=== PATIENT | male | born 1950 | race Two or more races ===

== ENCOUNTER 2019-04-19 23:45 | Inpatient (IN) | payer MEDICARE ==
[~2019-04-19] VITALS: Ht 162.6 cm; Wt 50.4 kg
--- NOTE | 2019-04-19 23:50 | NUR ---
NURSE NOTES: Receive a report on the phone from Manuel Butcher RN @ [facility] for pt's direct admit.
--- NOTE | 2019-04-20 00:30 | NUR ---
NURSE NOTES: Receive a call from Dr. Mayfield and receive admission orders. Read back and confirm. Continue to bladder irrigation. Hold anticoagulants if pt takes any of them. Will carry out admission orders when pt admits.
[2019-04-20 01:45] VITALS: BP 160/86
--- NOTE | 2019-04-20 01:45 | NUR ---
NURSE NOTES: Pt newly admitted from [facility] ER via [facility] for gross hematuria. Awake and alert, orientation x4. No acute distress noted. Denies pain. 3-way brown catheter inserted state for continuous bladder irrigation. Noted hematuria. Body assessment is done. Skin intact. IV H/L on rt. AC without infiltration. Done checking belongings. Given room orientation with fall precautions. Call light within reach. Will continue to monitor. Dr. Mayfield is aware of pt's admission.
--- NOTE | 2019-04-20 02:00 | NUR ---
NURSE NOTES: Collect urine for Urine analysis and C/S.
[2019-04-20] MEDS ORDERED: HYDROcodone/Acetamin 5/325 tab ORAL PRN (03:00)
[2019-04-20] MEDS ORDERED: cefTRIAXone 1 GM in D5W 55 ML IVPB SCH ×2 (03:30→09:00)
[2019-04-20 03:34] LABS: APPEARANCE,URINE SLIGHTLY CLOUDY; BILIRUBIN, URINE NEGATIVE (NEGATIVE); COLOR,URINE RED; GLUCOSE, URINE (UA) NEGATIVE (NEGATIVE); KETONES,URINE NEGATIVE (NEGATIVE); LEUKOCYTE ESTERASE ,URINE 3+ (NEGATIVE); NITRITE,URINE NEGATIVE (NEGATIVE); PH,URINE 8 (4.5-8.0); PROTEIN,URINE 2+ (NEGATIVE); UROBILINOGEN,URINE NORMAL MG/DL (0.0-1.0)
[2019-04-20 04:00] VITALS: BP 153/68
--- NOTE | 2019-04-20 06:00 | NUR ---
NURSE NOTES: Provide information for possible blood transfusion and pamphlet. Receive a consent form. On CBI and noted bloody urine drained via brown catheter. No dizziness noted. Will continue to monitor.
[2019-04-20 06:34] LABS: BASOPHILS % (AUTO) 0.9 % (0.0-2.0); EOSINOPHILS % (AUTO) 1.4 % (0.0-3.0); HEMATOCRIT 24.8 % (42.0-52.0); HEMOGLOBIN 8.7 G/DL (14.2-18.0); LYMPHOCYTES % (AUTO) 14.7 % (20.0-45.0); MEAN CORPUSCULAR VOLUME 83 FL (80-99); MONOCYTES % (AUTO) 12.2 % (1.0-10.0); NEUTROPHILS % (AUTO) 70.8 % (45.0-75.0); PLATELET COUNT 354 K/UL (150-450); RED BLOOD COUNT 2.97 M/UL (4.70-6.10); RED CELL DISTRIBUTION WIDTH 10.8 % (11.6-14.8)
[2019-04-20 07:13] LABS: ALANINE AMINOTRANSFERASE 18 U/L (12-78); ALBUMIN 2.6 G/DL (3.4-5.0); ALBUMIN/GLOBULIN RATIO 0.8 (1.0-2.7); ALKALINE PHOSPHATASE 60 U/L (46-116); ANION GAP 9 mmol/L (5-15); ASPARTATE AMINO TRANSFERASE 13 U/L (15-37); BILIRUBIN,TOTAL 0.5 MG/DL (0.2-1.0); BLOOD UREA NITROGEN 4 mg/dL (7-18); CALCIUM 7.8 MG/DL (8.5-10.1); CARBON DIOXIDE 26 MMOL/L (21-32); CHLORIDE 109 MMOL/L (98-107); CREATININE 0.8 MG/DL (0.55-1.30); PHOSPHORUS 2.5 MG/DL (2.5-4.9); POTASSIUM 3.2 MMOL/L (3.5-5.1); SODIUM 144 MMOL/L (136-145)
--- NOTE | 2019-04-20 07:45 | NUR ---
HAND-OFF: Report given to VINOD Randolph. Round is done. Still bloody output noted via brown catheter.
[2019-04-20 08:00] VITALS: BP 148/80
--- NOTE | 2019-04-20 08:16 | NUR ---
NURSE NOTES: Received patient in bed awake. No SOB or acute distress. IV line intact and patent. 3 way brown catheter intact, on continuous bladder irrigation using approximately 2 liters remaining, bloody output noted. HOB elevated. Bed locked in lowest position. Call light within reach. Will continue plan of care.
[2019-04-20 12:00] VITALS: BP 145/76
--- NOTE | 2019-04-20 12:29 | Consultation ---
History of Present Illness General Date patient seen: Apr 20, 2019 Present Illness HPI 69 year old without any PMHx history, developed urinary retention one week ago and got a Perez catheter place. His catheter stop draining yesterday. He had blood clots in the Perez. He presented to [place] a few times and his catheter got flushed. He has been transferred to [place] for further management. Allergies: Coded Allergies: No Known Allergies (Unverified , 04/20/19) Patient History Healthcare decision maker Resuscitation status Full Code Advanced Directive on File Past Medical/Surgical History Past Medical/Surgical History: (1) Urinary retention Review of Systems Eye: Reports: no symptoms ENT: Reports: no symptoms Physical Exam General Appearance: WD/WN, no apparent distress Lines, tubes and drains: peripheral, central line HEENT: normocephalic, atraumatic Neck: non-tender, supple Respiratory/Chest: chest wall non-tender, lungs clear Breasts: no masses Cardiovascular/Chest: normal rate Abdomen: normal bowel sounds Genitourinary/Rectal: normal genital exam Extremities: normal range of motion Last 24 Hour Vital Signs Date Time Temp Pulse Resp B/P (MAP) Pulse Ox O2 Delivery O2 Flow Rate FiO2 04/20/19 09:00 Room Air 04/20/19 08:00 97.0 92 16 148/80 (102) 97 04/20/19 04:00 98.3 86 16 153/68 (96) 97 04/20/19 02:46 Room Air 04/20/19 02:32 Room Air 04/20/19 01:45 98.3 98 16 160/86 (110) 99 Intake and Output 04/19/19 04/20/19 19:00 07:00 Intake Total 225 ml Balance 225 ml Intake IV Total 225 ml Laboratory Tests Test 04/20/19 02:00 04/20/19 05:05 Urine Color Red Urine Appearance Slightly cloudy Urine pH 8 (4.5-8.0) Urine Specific [place] 1.010 (1.005-1.035) Urine Protein 2+ (NEGATIVE) H Urine Glucose (UA) Negative (NEGATIVE) Urine Ketones Negative (NEGATIVE) Urine Blood 5+ (NEGATIVE) H Urine Nitrite Negative (NEGATIVE) Urine Bilirubin Negative (NEGATIVE) Urine Urobilinogen Normal MG/DL (0.0-1.0) Urine Leukocyte Esterase 3+ (NEGATIVE) H Urine RBC Tntc /HPF (0 - 0) H Urine WBC 5-10 /HPF (0 - 0) H Urine Squamous Epithelial Cells None /LPF (NONE/OCC) Urine Bacteria Few /HPF (NONE) White Blood Count 11.0 K/UL (4.8-10.8) H Red Blood Count 2.97 M/UL (4.70-6.10) L Hemoglobin 8.7 G/DL (14.2-18.0) L Hematocrit 24.8 % (42.0-52.0) L Mean Corpuscular Volume 83 FL (80-99) Mean Corpuscular Hemoglobin 29.3 PG (27.0-31.0) Mean Corpuscular Hemoglobin Concent 35.2 G/DL (32.0-36.0) Red Cell Distribution Width 10.8 % (11.6-14.8) L Platelet Count 354 K/UL (150-450) Mean Platelet Volume 6.7 FL (6.5-10.1) Neutrophils (%) (Auto) 70.8 % (45.0-75.0) Lymphocytes (%) (Auto) 14.7 % (20.0-45.0) L Monocytes (%) (Auto) 12.2 % (1.0-10.0) H Eosinophils (%) (Auto) 1.4 % (0.0-3.0) Basophils (%) (Auto) 0.9 % (0.0-2.0) Prothrombin Time 10.7 SEC (9.30-11.50) Prothromb Time International Ratio 1.0 (0.9-1.1) Activated Partial Thromboplast Time 35 SEC (23-33) H Sodium Level 144 MMOL/L (136-145) Potassium Level 3.2 MMOL/L (3.5-5.1) L Chloride Level 109 MMOL/L (98-107) H Carbon Dioxide Level 26 MMOL/L (21-32) Anion Gap 9 mmol/L (5-15) Blood Urea Nitrogen 4 mg/dL (7-18) L Creatinine 0.8 MG/DL (0.55-1.30) Estimat Glomerular Filtration Rate > 60 mL/min (>60) Glucose Level 98 MG/DL (74-106) Calcium Level 7.8 MG/DL (8.5-10.1) L Phosphorus Level 2.5 MG/DL (2.5-4.9) Magnesium Level 1.8 MG/DL (1.8-2.4) Total Bilirubin 0.5 MG/DL (0.2-1.0) Aspartate Amino Transf (AST/SGOT) 13 U/L (15-37) L Alanine Aminotransferase (ALT/SGPT) 18 U/L (12-78) Alkaline Phosphatase 60 U/L (46-116) Total Protein 5.9 G/DL (6.4-8.2) L Albumin 2.6 G/DL (3.4-5.0) L Globulin 3.3 g/dL Albumin/Globulin Ratio 0.8 (1.0-2.7) L Height (Feet): 5 Height (Inches): 4.00 Weight (Pounds): 111 Medications Current Medications Medications (Trade) Dose Ordered Sig/Adrián Route PRN Reason Start Time Stop Time Status Last Admin Dose Admin Acetaminophen (Tylenol) 650 mg Q6H PRN ORAL Mild Pain/Temp > 100.5 04/20/19 03:00 05/20/19 02:59 Acetaminophen/ Hydrocodone Bitart ([place] 5/325) 1 tab Q6H PRN ORAL Moderate Pain (Pain Scale 4-6) 04/20/19 03:00 04/27/19 02:59 Acetaminophen/ Hydrocodone Bitart ([place] 5/325) 1 tab Q6H PRN ORAL Severe Pain (Pain Scale 7-10) 04/20/19 03:00 04/27/19 02:59 Ceftriaxone Sodium 1 gm/ Dextrose 55 ml @ 110 mls/hr Q12H IVPB 04/20/19 09:00 04/27/19 03:29 04/20/19 09:05 Ondansetron HCl (Zofran) 4 mg Q4H PRN IVP Nausea & Vomiting 04/20/19 03:00 05/20/19 02:59 Sodium Chloride 1,000 ml @ 75 mls/hr [id number] IV 04/20/19 03:00 05/20/19 02:59 04/20/19 03:38 Assessment/Plan Problem List: (1) Hematuria ICD Codes: R31.9 - Hematuria, unspecified SNOMED: 63849709 (2) Severe anemia ICD Codes: D64.9 - Anemia, unspecified SNOMED: 180745408 (3) UTI (urinary tract infection) ICD Codes: N39.0 - Urinary tract infection, site not specified SNOMED: 55477276 (4) Urinary retention ICD Codes: R33.9 - Retention of urine, unspecified SNOMED: 796262586 Assessment/Plan: frequent Perez drainage iv fluids symptomatic treatment Urology called, Dr. Horner check urine cultures Geovany Welch MD Apr 20, 2019 12:29
--- NOTE | 2019-04-20 13:18 | History & Physical ---
History and Physical History & Physicial Dictated for Int Med-Dr Mayfield no. [id number]. Jarvis Naidu MD Apr 20, 2019 13:18
[2019-04-20] MEDS: NS w/KCl 20mEq 1000ml 1,000 ML IV SCH (13:38)
--- NOTE | 2019-04-20 14:24 | NUR ---
CASE MANAGEMENT: INITIAL REVIEW 69YR OLD MALE BIBA FROM [place] CC: URINARY RETENTION SI: HEMATURIA . SEVERE ANEMIA . UTI . URINARY RETENTION WITH CATHETER WBC 11.0 H/H 8.7/24.8 K+3.2 CL-109 BUN 4 CA+ 7.8 IS:IVF NS @75ML/HR IV KCL @75ML/HR IV ROCEPHIN BID \: 3E MED SURG UNIT PLAN: CONSULT REGARDING HEMATURIA WITH DR. MILLER IVF FREQUENT ANTONIO DRAINAGE UROLOGY CONSULT DR. TSANG
[2019-04-20 16:00] VITALS: BP 142/74
--- NOTE | 2019-04-20 16:00 | NUR ---
NURSE NOTES: Slightly elevated temp at 100F, cooling measures done. Prn medication given.
--- NOTE | 2019-04-20 17:30 | History and Physical Report ---
DATE OF ADMISSION: 04/20/2019 CHIEF COMPLAINT: The patient is a 69-year-old male, who presents with a chief complaint of blood in his urine. HISTORY OF PRESENT ILLNESS: Began approximately 6 years ago when the patient was diagnosed with benign prostatic hypertrophy. The patient was given a trial of Perez catheter at that time. Benign prostatic hypertrophy resolved. The patient states two weeks ago, he began to experience suprapubic pain and urinary retention. The patient was seen at urgent care two weeks ago. The patient was prescribed terazosin 5 mg p.o. daily. . The patient presented to [facility] on 04/10/2019. The patient had a Perez catheter placed. The catheter was also flushed that same day at the emergency room. The patient returned to [facility] on Thursday April 11, 2019. The patient states the catheter was clogged. The catheter was replaced. The patient states he began to experience blood in his urinary catheter yesterday, 04/19/2019. The patient again went to [facility]. The Perez catheter was found to be obstructed. The patient is transferred to [facility] for insurance purposes. The patient is admitted with gross hematuria to rule out bladder cancer. REVIEW OF SYSTEMS: CONSTITUTIONAL: The patient denies weight loss or gain. The patient denies fevers or chills. HEENT: The patient denies ear or throat pain. The patient denies headache. CARDIOVASCULAR: The patient denies palpitations or chest pain. CHEST: The patient denies wheeze or shortness of breath. ABDOMINAL: The patient denies nausea, vomiting, diarrhea, or constipation. The patient complains of suprapubic catheter pain. NEUROMUSCULAR: The patient denies seizures or generalized weakness. GENITOURINARY: The patient complains of gross hematuria as above. The patient denies dysuria. PAST MEDICAL HISTORY: Significant for benign prostatic hypertrophy, diagnosed 6 years previously. PAST SURGICAL HISTORY: The patient denies. CURRENT MEDIATIONS: Terazosin 5 mg p.o. daily for the past two weeks. ALLERGIES: No known drug allergies. SOCIAL HISTORY: The patient is single and lives with his adult daughter. The patient denies tobacco or alcohol use. PHYSICAL EXAMINATION: VITAL SIGNS: Temperature 100.4 degrees Fahrenheit, pulse 92, blood pressure 146/69, respiration rate 18. GENERAL: The patient is well-developed and well-nourished male, in no apparent distress. HEENT: Eyes, pupils are equal and responsive to light and accommodation. Extraocular movements are intact. NECK: Supple without lymphadenopathy. CHEST: Lungs are clear to auscultation bilaterally without wheezes or rales. CARDIOVASCULAR: Regular rhythm and rate. S1 and S2 normal without murmurs, rubs, or gallops. ABDOMEN: Soft, tender to palpation in the periumbilical region without rebound or guarding. EXTREMITIES: Negative for clubbing, cyanosis, or edema. RECTAL/GENITAL: Not performed. NEUROLOGIC: Cranial nerves II through XII are grossly intact without focal deficits. Motor strength is 5/5 bilaterally. Deep tendon reflexes are 2+ plantar. LABORATORY STUDIES: WBC 13.6, hemoglobin 9.3, hematocrit 27.9, and platelets 387,000. Sodium 137, potassium 3.5, chloride 102, CO2 28, BUN 10, creatinine 1.03. Urinalysis showed 3+ hemoglobin with 6 to 10 wbc's and greater than 50 rbc's. ASSESSMENT: This is a 69-year-old male. 1. Gross hematuria. 2. Urinary tract infection. 3. Suprapubic pain. 4. Fever. TREATMENT: 1. Urinary tract infection. Urine culture is pending from [facility]. The patient has been started empirically on intravenous ceftriaxone. A Urology consultation has been obtained with Dr. Pee Green. The patient may require cystoscopy to rule out bladder cancer. 2. Suprapubic pain. 3. Benign prostatic hypertrophy. Continue terazosin as above. Jarvis Naidu M.D. DR: GENNA JOB#: [id number] CC:
--- NOTE | 2019-04-20 18:57 | NUR ---
NURSE NOTES: Dr Green seen patient, hand irrigated brown catheter, with clots taken out. Procedure tolerated well by patient.
--- NOTE | 2019-04-20 19:20 | NUR ---
NURSE NOTES: Received report from VINOD Randolph. Pt is awake, lying semi-fregoso's; comfortably resting. No signs of acute distress noted. Pt denies any pain at this time. AOx4; able to make needs known. Checked IV site, line, and rate; patent and running. No erythema, bleeding, or infiltration. CBI checked; patent and running. Bed at lowest position. Brakes on. Siderails up x2. Call light within reach. Will continue to monitor.
--- NOTE | 2019-04-20 19:57 | NUR ---
HAND-OFF: Report given to cuca.
[2019-04-20 20:00] VITALS: BP 124/71
--- NOTE | 2019-04-20 20:00 | Consultation ---
DATE OF CONSULTATION: 04/20/2019 CONSULTING PHYSICIAN: Pee Green M.D. REFERRING PHYSICIAN: Jarvis Naidu M.D. REASON FOR EVALUATION: Gross hematuria. HISTORY OF PRESENT ILLNESS: This is a 69-year-old male. He has a history of BPH. He has a history of urinary retention. He had a Perez catheter placed apparently a week or two ago at an urgent care facility. He had hematuria and he was seen at a [place] facility. The Perez catheter was apparently occluded and the catheter was replaced. He was started on continuous bladder irrigation. The patient has been transferred to [facility]. Followup Urology evaluation had been requested. PAST MEDICAL HISTORY: Significant for above. PAST SURGICAL HISTORY: Unknown. CURRENT MEDICATIONS: Here in the hospital, the patient is on Rocephin. He is on Restoril, [place], and Zofran. ALLERGIES: No known drug allergies. SOCIAL HISTORY: The patient is currently a nonsmoker. FAMILY HISTORY: Noncontributory. REVIEW OF SYSTEMS: No significant flank pain. PHYSICAL EXAMINATION: GENERAL: A well-developed and well-nourished male, in no acute distress. VITAL SIGNS: Temperature is 100, blood pressure is 142/74, pulse 95, respirations 17. HEENT: Normocephalic. NECK: Supple. ABDOMEN: Soft. GENITOURINARY: Reveals 20-Finnish 3-way Perez catheter in place. Urine is grossly dark bloody. LABORATORY DATA: PT 10.7, INR 1.0, and PTT 35. White count 11.0, hemoglobin 8.7, and platelets 354,000. BUN is 4, creatinine is 0.8. UA showed 2+ protein, too numerous to count rbc's, 5 to 10 wbc's. DIAGNOSTIC IMAGING STUDIES: None here at [place]. IMPRESSION: 1. Gross hematuria. 2. BPH. 3. Urinary retention. 4. Pyuria. 5. Proteinuria. PLAN AND DISCUSSION: The patient was evaluated on an urgent basis. I did personally hand irrigate the existing Perez catheter about 3 L of normal saline and copious clots were evacuated from the bladder onto the urine did clear completely. The Perez is somewhat oppositional, but the CBI is now running and again the urine is clearing. I do not see any evidence of active bleeding at this time. The bleeding could be secondary to BPH or UTI with cystitis and possibly bladder cancer. At this time, I agree with Rocephin as ordered. I will also add Flomax and finasteride. A CT scan of the abdomen and pelvis will be obtained. The patient is to continue with the continuous bladder irrigation and the rate will be titrated to keep the urine clear and hand irrigation as needed. The patient's hemoglobin and hematocrit will be monitored. The patient denies use of any anticoagulants recently. At some point, he will need to have cystoscopy and this will be arranged in the future. Thank you for this consultation. Pee Green M.D. DR: UZMA JOB#: [id number] CC:
[2019-04-20] MEDS: Tamsulosin 0.4mg cap ORAL SCH (20:34)
[2019-04-20] MEDS: HYDROcodone/Acetamin 5/325 tab ORAL PRN (21:44)
[2019-04-21] VITALS: BP 124/74
[2019-04-21] MEDS: NS w/KCl 20mEq 1000ml 1,000 ML IV SCH ×2 (02:18→16:20)
[2019-04-21 04:00] VITALS: BP 125/76
[2019-04-21] MEDS: HYDROcodone/Acetamin 5/325 tab ORAL PRN ×2 (05:10→16:18)
--- NOTE | 2019-04-21 07:19 | NUR ---
HAND-OFF: Report given to VINOD Hercules. Pt is awake and in stable condition. Plan of care endorsed. Addendum: 04/21/19 at 0756 by Brent Hanson RN Report given to VINOD Richard rather than VINOD Hercules.
--- NOTE | 2019-04-21 07:19 | NUR ---
NURSE NOTES: Report received from Radha RN, rounds made. Patient alert, oriented x4, calm. IVF (NS+20KCL at 75 ml/hr) infusing to RAC, site asymptomatic. CBI infusing via 3-way brown catheter, penile site asymptomatic, urine clear, no clots, no color noted at this time. No distress on RA, denies pain, SOB, NV. Bilateral SCDs on. Reinforced NPO status for CT abdomen/pelvis, will get consent signed for IV contrast. Call light in reach, bed in lowest position, will continue to monitor.
[2019-04-21 07:24] LABS: BASOPHILS % (AUTO) 0.8 % (0.0-2.0); EOSINOPHILS % (AUTO) 1.9 % (0.0-3.0); HEMATOCRIT 25.3 % (42.0-52.0); LYMPHOCYTES % (AUTO) 13.2 % (20.0-45.0); MEAN CORPUSCULAR VOLUME 83 FL (80-99); MONOCYTES % (AUTO) 11.3 % (1.0-10.0); NEUTROPHILS % (AUTO) 72.7 % (45.0-75.0); PLATELET COUNT 403 K/UL (150-450); RED BLOOD COUNT 3.04 M/UL (4.70-6.10); RED CELL DISTRIBUTION WIDTH 10.9 % (11.6-14.8); WHITE BLOOD COUNT 12.7 K/UL (4.8-10.8)
[2019-04-21 07:33] LABS: ANION GAP 8 mmol/L (5-15); BLOOD UREA NITROGEN 6 mg/dL (7-18); CALCIUM 8.1 MG/DL (8.5-10.1); CARBON DIOXIDE 24 MMOL/L (21-32); CHLORIDE 109 MMOL/L (98-107); CREATININE 0.8 MG/DL (0.55-1.30); POTASSIUM 4.1 MMOL/L (3.5-5.1); SODIUM 141 MMOL/L (136-145)
[2019-04-21 07:34] LABS: LACTATE DEHYDROGENASE 114 U/L (81-234)
[2019-04-21 07:54] LABS: % IRON SATURATION 7 % (15-50); IRON 15 ug/dL (50-175); TOTAL IRON BINDING CAPACITY 211 ug/dL (250-450)
[2019-04-21 08:00] VITALS: BP 123/81
[2019-04-21] MEDS: cefTRIAXone 1 GM in D5W 55 ML IVPB SCH (09:20)
--- NOTE | 2019-04-21 09:20 | Urology Progress Note ---
Assessment/Plan Assessment/Plan: 1. Gross hematuria. 2. BPH. 3. Urinary retention. 4. Pyuria. 5. Proteinuria. maintain brown CBI, titrate to keep clear cath hand irrigated, no clots cont with flomax, proscar monitor h/h, stable abx ordered no anticoagulation f/u on urine cx f/u on CT A/P cysto at some point electively d/w nursing staff Subjective Allergies: Coded Allergies: No Known Allergies (Unverified , 04/20/19) Subjective all noted, comfortable, CBI running Objective Last 24 Hour Vital Signs Date Time Temp Pulse Resp B/P (MAP) Pulse Ox O2 Delivery O2 Flow Rate FiO2 04/21/19 04:00 98.6 87 20 125/76 (92) 96 04/21/19 00:00 99.7 88 20 124/74 (91) 98 04/20/19 21:00 Room Air 04/20/19 20:00 99.2 88 20 124/71 (88) 97 04/20/19 16:54 99.0 04/20/19 16:00 100.0 95 17 142/74 (96) 99 04/20/19 12:00 99.5 95 17 145/76 (99) 98 Intake and Output 04/20/19 04/21/19 19:00 07:00 Intake Total 4075 ml 500 ml Output Total 6100 ml 2350 ml Balance -2025 ml -1850 ml Intake Oral 500 ml IV Total 75 ml Other 4000 ml Output Urine Total 6100 ml 2350 ml Microbiology Date/Time Source Procedure Growth Status 04/20/19 02:00 Urine,Clean Catch Urine Culture - Preliminary Resulted Current Medications Medications (Trade) Dose Ordered Sig/Adrián Route PRN Reason Start Time Stop Time Status Last Admin Dose Admin Acetaminophen (Tylenol) 650 mg Q6H PRN ORAL Mild Pain/Temp > 100.5 04/20/19 03:00 05/20/19 02:59 04/20/19 16:24 Acetaminophen/ Hydrocodone Bitart ([place] 5/325) 1 tab Q6H PRN ORAL Moderate Pain (Pain Scale 4-6) 04/20/19 03:00 04/27/19 02:59 04/21/19 05:10 Acetaminophen/ Hydrocodone Bitart ([place] 5/325) 1 tab Q6H PRN ORAL Severe Pain (Pain Scale 7-10) 04/20/19 03:00 04/27/19 02:59 Ceftriaxone Sodium 1 gm/ Dextrose 55 ml @ 110 mls/hr DAILY IVPB 04/21/19 09:00 04/26/19 09:29 Finasteride (Proscar) 5 mg DAILY ORAL 04/20/19 19:30 05/20/19 19:29 04/20/19 20:34 Ondansetron HCl (Zofran) 4 mg Q4H PRN IVP Nausea & Vomiting 04/20/19 03:00 05/20/19 02:59 Potassium Chloride/Sodium Chloride 1,000 ml @ 75 mls/hr [id number] IV 04/20/19 14:00 05/20/19 13:59 04/21/19 02:18 Tamsulosin HCl (Flomax) 0.4 mg BEDTIME ORAL 04/20/19 21:00 05/20/19 20:59 04/20/19 20:34 Temazepam (RestoriL) 7.5 mg HSPRN PRN ORAL Insomnia 04/20/19 12:34 04/27/19 12:33 04/20/19 23:07 Laboratory Tests 04/21/19 05:05: White Blood Count 12.7H, Red Blood Count 3.04L, Hemoglobin 9.0L, Hematocrit 25.3L, Mean Corpuscular Volume 83, Mean Corpuscular Hemoglobin 29.6, Mean Corpuscular Hemoglobin Concent 35.5, Red Cell Distribution Width 10.9L, Platelet Count 403, Mean Platelet Volume 6.0L, Neutrophils (%) (Auto) 72.7, Lymphocytes (%) (Auto) 13.2L, Monocytes (%) (Auto) 11.3H, Eosinophils (%) (Auto ) 1.9, Basophils (%) (Auto) 0.8, Erythrocyte Sedimentation Rate 74H, Reticulocyte Count [Pending], Prothrombin Time 10.2, Prothromb Time International Ratio 1.0, Activated Partial Thromboplast Time 34H, Sodium Level 141, Potassium Level 4.1, Chloride Level 109H, Carbon Dioxide Level 24, Anion Gap 8, Blood Urea Nitrogen 6L, Creatinine 0.8, Estimat Glomerular Filtration Rate > 60, Glucose Level 90, Calcium Level 8.1L, Iron Level 15L, Total Iron Binding Capacity 211L, Percent Iron Saturation 7L, Unsaturated Iron Binding 196 , Lactate Dehydrogenase 114, Carcinoembryonic Antigen [Pending], Vitamin B12 Level 216, Folate 17.4 Height (Feet): 5 Height (Inches): 4.00 Weight (Pounds): 111 Objective exam stable urine clearing with moderate CBI CT A/P pending Pee Green MD Apr 21, 2019 09:20
[2019-04-21 12:00] VITALS: BP 119/66
--- NOTE | 2019-04-21 12:00 | NUR ---
NURSE NOTES: Orders received from Dr. Mayfield to hold CBI and monitor. CBI clamped at this time.
--- NOTE | 2019-04-21 12:19 | Internal Med Progress Note ---
Subjective Physician Name David Mayfield Attending Physician David Mayfield MD Current Medications Medications (Trade) Dose Ordered Sig/Adrián Route PRN Reason Start Time Stop Time Status Last Admin Dose Admin Acetaminophen (Tylenol) 650 mg Q6H PRN ORAL Mild Pain/Temp > 100.5 04/20/19 03:00 05/20/19 02:59 04/20/19 16:24 Acetaminophen/ Hydrocodone Bitart ([place] 5/325) 1 tab Q6H PRN ORAL Moderate Pain (Pain Scale 4-6) 04/20/19 03:00 04/27/19 02:59 04/21/19 05:10 Acetaminophen/ Hydrocodone Bitart ([place] 5/325) 1 tab Q6H PRN ORAL Severe Pain (Pain Scale 7-10) 04/20/19 03:00 04/27/19 02:59 Ceftriaxone Sodium 1 gm/ Dextrose 55 ml @ 110 mls/hr DAILY IVPB 04/21/19 09:00 04/26/19 09:29 04/21/19 09:20 Finasteride (Proscar) 5 mg DAILY ORAL 04/20/19 19:30 05/20/19 19:29 04/21/19 09:20 Ondansetron HCl (Zofran) 4 mg Q4H PRN IVP Nausea & Vomiting 04/20/19 03:00 05/20/19 02:59 Potassium Chloride/Sodium Chloride 1,000 ml @ 75 mls/hr [id number] IV 04/20/19 14:00 05/20/19 13:59 04/21/19 02:18 Tamsulosin HCl (Flomax) 0.4 mg BEDTIME ORAL 04/20/19 21:00 05/20/19 20:59 04/20/19 20:34 Temazepam (RestoriL) 7.5 mg HSPRN PRN ORAL Insomnia 04/20/19 12:34 04/27/19 12:33 04/20/19 23:07 Allergies: Coded Allergies: No Known Allergies (Unverified , 04/20/19) Subjective awake, alert, responsive, NAD, No CP or SOB, No N /V, WBC: 12.7, on CBI Objective Last Vital Signs Date Time Temp Pulse Resp B/P (MAP) Pulse Ox O2 Delivery O2 Flow Rate FiO2 3/5/20 08:00 98.1 82 21 123/81 (95) 97 04/20/19 21:00 Room Air Laboratory Tests Test 04/21/19 05:05 White Blood Count 12.7 K/UL (4.8-10.8) H Red Blood Count 3.04 M/UL (4.70-6.10) L Hemoglobin 9.0 G/DL (14.2-18.0) L Hematocrit 25.3 % (42.0-52.0) L Mean Corpuscular Volume 83 FL (80-99) Mean Corpuscular Hemoglobin 29.6 PG (27.0-31.0) Mean Corpuscular Hemoglobin Concent 35.5 G/DL (32.0-36.0) Red Cell Distribution Width 10.9 % (11.6-14.8) L Platelet Count 403 K/UL (150-450) Mean Platelet Volume 6.0 FL (6.5-10.1) L Neutrophils (%) (Auto) 72.7 % (45.0-75.0) Lymphocytes (%) (Auto) 13.2 % (20.0-45.0) L Monocytes (%) (Auto) 11.3 % (1.0-10.0) H Eosinophils (%) (Auto) 1.9 % (0.0-3.0) Basophils (%) (Auto) 0.8 % (0.0-2.0) Differential Total Cells Counted 100 Neutrophils % (Manual) 73 % (45-75) Lymphocytes % (Manual) 15 % (20-45) L Monocytes % (Manual) 9 % (1-10) Eosinophils % (Manual) 2 % (0-3) Basophils % (Manual) 1 % (0-2) Band Neutrophils 0 % (0-8) Platelet Estimate Adequate Platelet Morphology Normal Hypochromasia 2+ Anisocytosis 1+ Spherocytes 1+ Erythrocyte Sedimentation Rate 74 MM/HR (0-20) H Reticulocyte Count 2.0 % (0.5-2.0) Prothrombin Time 10.2 SEC (9.30-11.50) Prothromb Time International Ratio 1.0 (0.9-1.1) Activated Partial Thromboplast Time 34 SEC (23-33) H Sodium Level 141 MMOL/L (136-145) Potassium Level 4.1 MMOL/L (3.5-5.1) Chloride Level 109 MMOL/L (98-107) H Carbon Dioxide Level 24 MMOL/L (21-32) Anion Gap 8 mmol/L (5-15) Blood Urea Nitrogen 6 mg/dL (7-18) L Creatinine 0.8 MG/DL (0.55-1.30) Estimat Glomerular Filtration Rate > 60 mL/min (>60) Glucose Level 90 MG/DL (74-106) Calcium Level 8.1 MG/DL (8.5-10.1) L Iron Level 15 ug/dL (50-175) L Total Iron Binding Capacity 211 ug/dL (250-450) L Percent Iron Saturation 7 % (15-50) L Unsaturated Iron Binding 196 ug/dL (112-346) Lactate Dehydrogenase 114 U/L (81-234) Carcinoembryonic Antigen Pending Vitamin B12 Level 216 PG/ML (193-986) Folate 17.4 NG/ML (8.6-58.9) Microbiology Date/Time Source Procedure Growth Status 04/20/19 02:00 Urine,Clean Catch Urine Culture - Preliminary Resulted Intake and Output 04/20/19 04/21/19 19:00 07:00 Intake Total 4075 ml 500 ml Output Total 6100 ml 2350 ml Balance -2025 ml -1850 ml Intake Oral 500 ml IV Total 75 ml Other 4000 ml Output Urine Total 6100 ml 2350 ml Objective Physical Exam General: No acute distress, awake and alert HEENT: NCAT, sclera anicteric, PERRL, EOMI. Neck: Supple, no significant jugular venous distention, Lungs: Good inspiratory effort, clear to auscultation bilaterally, no Wheeze or Rales. Heart: Regular rate and rhythm, normal S1/S2, no murmurs/gallops Abdomen: soft, nontender, nondistended. Normoactive bowel sounds. : Perez cath with CBI Extremities: No Cyanosis , clubbing or edema. Neuro: A&O x 3, Able to move all extremities Skin: warm, no rashes or lesions Psych: Normal mood and affect Assessment/Plan Assessment/Plan ASSESSMENT: This is a 69-year-old male. 1. Gross hematuria. 2. Urinary retention. 3. Suprapubic pain. 4. Fever possible UTI. TREATMENT: 1. Urinary tract infection. Urine culture is pending from [facility] [place]. The patient has been started empirically on intravenous ceftriaxone. A Urology consultation has been obtained with Dr. Pee Green. The patient may require cystoscopy to rule out bladder cancer. 2. Suprapubic pain. 3. Benign prostatic hypertrophy. Continue terazosin as above. Clamp CBI for now encourage ambulation. monitor Labs and cultures. David Mayfield MD Apr 21, 2019 12:19
--- NOTE | 2019-04-21 13:01 | Pulmonology Progress Note ---
Assessment/Plan Problems: (1) Hematuria (2) Severe anemia (3) UTI (urinary tract infection) (4) Urinary retention Assessment/Plan improving dc bladder flushes check cultures id evaluation keep brown in Subjective Interval Events: hematuria resolved Allergies: Coded Allergies: No Known Allergies (Unverified , 04/20/19) Objective Last 24 Hour Vital Signs Date Time Temp Pulse Resp B/P (MAP) Pulse Ox O2 Delivery O2 Flow Rate FiO2 04/21/19 08:00 98.1 82 21 123/81 (95) 97 04/21/19 04:00 98.6 87 20 125/76 (92) 96 04/21/19 00:00 99.7 88 20 124/74 (91) 98 04/20/19 21:00 Room Air 04/20/19 20:00 99.2 88 20 124/71 (88) 97 04/20/19 16:54 99.0 04/20/19 16:00 100.0 95 17 142/74 (96) 99 Intake and Output 04/20/19 04/21/19 19:00 07:00 Intake Total 4075 ml 500 ml Output Total 6100 ml 2350 ml Balance -2025 ml -1850 ml Intake Oral 500 ml IV Total 75 ml Other 4000 ml Output Urine Total 6100 ml 2350 ml HEENT: normocephalic, atraumatic Respiratory/Chest: chest wall non-tender, lungs clear Cardiovascular: normal peripheral pulses, normal rate Abdomen: normal bowel sounds, soft, non tender Genitourinary: normal external genitalia Skin: no rash Microbiology Date/Time Source Procedure Growth Status 04/20/19 02:00 Urine,Clean Catch Urine Culture - Preliminary Resulted Laboratory Tests 04/21/19 05:05: White Blood Count 12.7H, Red Blood Count 3.04L, Hemoglobin 9.0L, Hematocrit 25.3L, Mean Corpuscular Volume 83, Mean Corpuscular Hemoglobin 29.6, Mean Corpuscular Hemoglobin Concent 35.5, Red Cell Distribution Width 10.9L, Platelet Count 403, Mean Platelet Volume 6.0L, Neutrophils (%) (Auto) 72.7, Lymphocytes (%) (Auto) 13.2L, Monocytes (%) (Auto) 11.3H, Eosinophils (%) (Auto ) 1.9, Basophils (%) (Auto) 0.8, Differential Total Cells Counted 100, Neutrophils % (Manual) 73, Lymphocytes % (Manual) 15L, Monocytes % (Manual) 9, Eosinophils % (Manual) 2, Basophils % (Manual) 1, Band Neutrophils 0, Platelet Estimate Adequate, Platelet Morphology Normal, Hypochromasia 2+, Anisocytosis 1+ , Spherocytes 1+, Erythrocyte Sedimentation Rate 74H, Reticulocyte Count 2.0, Prothrombin Time 10.2, Prothromb Time International Ratio 1.0, Activated Partial Thromboplast Time 34H, Sodium Level 141, Potassium Level 4.1, Chloride Level 109H, Carbon Dioxide Level 24, Anion Gap 8, Blood Urea Nitrogen 6L, Creatinine 0.8, Estimat Glomerular Filtration Rate > 60, Glucose Level 90, Calcium Level 8.1L, Iron Level 15L, Total Iron Binding Capacity 211L, Percent Iron Saturation 7L, Unsaturated Iron Binding 196, Lactate Dehydrogenase 114, Carcinoembryonic Antigen [Pending], Vitamin B12 Level 216, Folate 17.4 Current Medications Medications (Trade) Dose Ordered Sig/Adrián Route PRN Reason Start Time Stop Time Status Last Admin Dose Admin Acetaminophen (Tylenol) 650 mg Q6H PRN ORAL Mild Pain/Temp > 100.5 04/20/19 03:00 05/20/19 02:59 04/20/19 16:24 Acetaminophen/ Hydrocodone Bitart ([place] 5/325) 1 tab Q6H PRN ORAL Moderate Pain (Pain Scale 4-6) 04/20/19 03:00 04/27/19 02:59 04/21/19 05:10 Acetaminophen/ Hydrocodone Bitart ([place] 5/325) 1 tab Q6H PRN ORAL Severe Pain (Pain Scale 7-10) 04/20/19 03:00 04/27/19 02:59 Ceftriaxone Sodium 1 gm/ Dextrose 55 ml @ 110 mls/hr DAILY IVPB 04/21/19 09:00 04/26/19 09:29 04/21/19 09:20 Finasteride (Proscar) 5 mg DAILY ORAL 04/20/19 19:30 05/20/19 19:29 04/21/19 09:20 Ondansetron HCl (Zofran) 4 mg Q4H PRN IVP Nausea & Vomiting 04/20/19 03:00 05/20/19 02:59 Potassium Chloride/Sodium Chloride 1,000 ml @ 75 mls/hr [id number] IV 04/20/19 14:00 05/20/19 13:59 04/21/19 02:18 Tamsulosin HCl (Flomax) 0.4 mg BEDTIME ORAL 04/20/19 21:00 05/20/19 20:59 04/20/19 20:34 Temazepam (RestoriL) 7.5 mg HSPRN PRN ORAL Insomnia 04/20/19 12:34 04/27/19 12:33 04/20/19 23:07 Geovany Welch MD Apr 21, 2019 13:01
--- NOTE | 2019-04-21 13:24 | Diagnostic Imaging Report ---
Indication: Hematuria Technique: Continuous helical transaxial imaging of the abdomen and pelvis was obtained from the lung bases to the pubic symphysis before contrast administration and during dynamic intravenous contrast administration. Arterial, venous and delayed phases obtained. Coronal 2-D reformats were also obtained. Study obtained in a Siemens sensation [address] Automatic Exposure Control was utilized. Total Dose length Product (DLP): 991.[address] Dose Index Volume (CTDIvol): 85.2 mGy Comparison: None Findings: Noncontrast images show no evidence of nephrolithiasis or urinary tract stones. There is mild left hydroureteronephrosis demonstrated. There is no demonstration of a intraureteral stone to account for this. There is severe hypertrophy of the heterogeneous appearing prostate gland. There is also severe thickening of the wall the urinary bladder consistent with cystitis likely chronic due to chronic bladder outlet impediment. A Perez catheter is present in good position in the bladder lumen. The prostate gland has an approximate measurement of 8.4 x 7.9 x 12.3 cm in AP, transverse, craniocaudal dimensions respectively. The margins of the prostate gland are relatively inseparable from the base of the urinary bladder. The distal segment of the dilated left ureter is not well seen. The hydronephrosis on the left is probably not associated with any functional degree of obstruction given normal symmetric nephrograms on all 3 phases of enhancement. (This is by no means a quantitative assessment of renal function but qualitatively one can say there is not a significant asymmetry in renal function.). There is no renal mass. There are punctate calcifications within the liver and spleen consistent with old granulomatous disease. There may be mild nodularity of the liver surface. Correlate for chronic liver disease. The gallbladder is contracted. There is no biliary ductal dilatation identified. The pancreas is unremarkable. The adrenal glands are unremarkable. There is no free fluid. Bowel gas pattern is nonobstructive. The appendix is normal. There is a small left inguinal hernia containing fat. Osseous structures are unremarkable. Minimal posterior basal atelectasis noted. Small hiatal hernia is present. IMPRESSION: Mild left hydroureteronephrosis without evidence of obstructive calculus. This is probably on the basis of markedly enlarged prostate gland, which measures 8.4 x 7.9 x 12.3 cm. Other possibilities are not excluded including tumor involvement of the left UVJ. Prostate neoplasm is not excluded. Please correlate clinically. Marked thickening of the urinary bladder wall consistent with chronic cystitis likely due to bladder outlet impediment. Old granulomatous disease. Query chronic liver disease/cirrhosis. Small hiatal hernia Posterior basal atelectasis and/or mild fibrosis. Small left inguinal hernia containing fat The CT scanner at [facility] is accredited by the [employer] and the scans are performed using protocols designed to limit radiation exposure to as low as reasonably achievable to attain images of sufficient resolution adequate for diagnostic evaluation.
--- NOTE | 2019-04-21 14:00 | NUR ---
NURSE NOTES: Patient up ambulating in halls. Gait steady. Patient remains safe.
[2019-04-21 16:00] VITALS: BP 128/83
--- NOTE | 2019-04-21 18:00 | NUR ---
NURSE NOTES: Dr. Mayfield notified of brown, urine output status (bloody, with some clots noted), order received to resume CBI. Resumed without difficulty, will continue to monitor.
--- NOTE | 2019-04-21 18:41 | Infectious Diseases Prog Note ---
Subjective Allergies: Coded Allergies: No Known Allergies (Unverified , 04/20/19) Subjective # [id number] Objective Vital Signs Last 24 Hour Vital Signs Date Time Temp Pulse Resp B/P (MAP) Pulse Ox O2 Delivery O2 Flow Rate FiO2 04/21/19 12:00 98.3 70 21 119/66 (83) 97 04/21/19 09:00 Room Air 04/21/19 08:00 98.1 82 21 123/81 (95) 97 04/21/19 04:00 98.6 87 20 125/76 (92) 96 04/21/19 00:00 99.7 88 20 124/74 (91) 98 04/20/19 21:00 Room Air 04/20/19 20:00 99.2 88 20 124/71 (88) 97 Height (Feet): 5 Height (Inches): 4.00 Weight (Pounds): 111 Microbiology Date/Time Source Procedure Growth Status 04/20/19 02:00 Urine,Clean Catch Urine Culture - Preliminary Resulted Laboratory Tests Test 04/21/19 05:05 White Blood Count 12.7 K/UL (4.8-10.8) H Red Blood Count 3.04 M/UL (4.70-6.10) L Hemoglobin 9.0 G/DL (14.2-18.0) L Hematocrit 25.3 % (42.0-52.0) L Mean Corpuscular Volume 83 FL (80-99) Mean Corpuscular Hemoglobin 29.6 PG (27.0-31.0) Mean Corpuscular Hemoglobin Concent 35.5 G/DL (32.0-36.0) Red Cell Distribution Width 10.9 % (11.6-14.8) L Platelet Count 403 K/UL (150-450) Mean Platelet Volume 6.0 FL (6.5-10.1) L Neutrophils (%) (Auto) 72.7 % (45.0-75.0) Lymphocytes (%) (Auto) 13.2 % (20.0-45.0) L Monocytes (%) (Auto) 11.3 % (1.0-10.0) H Eosinophils (%) (Auto) 1.9 % (0.0-3.0) Basophils (%) (Auto) 0.8 % (0.0-2.0) Differential Total Cells Counted 100 Neutrophils % (Manual) 73 % (45-75) Lymphocytes % (Manual) 15 % (20-45) L Monocytes % (Manual) 9 % (1-10) Eosinophils % (Manual) 2 % (0-3) Basophils % (Manual) 1 % (0-2) Band Neutrophils 0 % (0-8) Platelet Estimate Adequate Platelet Morphology Normal Hypochromasia 2+ Anisocytosis 1+ Spherocytes 1+ Erythrocyte Sedimentation Rate 74 MM/HR (0-20) H Reticulocyte Count 2.0 % (0.5-2.0) Prothrombin Time 10.2 SEC (9.30-11.50) Prothromb Time International Ratio 1.0 (0.9-1.1) Activated Partial Thromboplast Time 34 SEC (23-33) H Sodium Level 141 MMOL/L (136-145) Potassium Level 4.1 MMOL/L (3.5-5.1) Chloride Level 109 MMOL/L (98-107) H Carbon Dioxide Level 24 MMOL/L (21-32) Anion Gap 8 mmol/L (5-15) Blood Urea Nitrogen 6 mg/dL (7-18) L Creatinine 0.8 MG/DL (0.55-1.30) Estimat Glomerular Filtration Rate > 60 mL/min (>60) Glucose Level 90 MG/DL (74-106) Calcium Level 8.1 MG/DL (8.5-10.1) L Iron Level 15 ug/dL (50-175) L Total Iron Binding Capacity 211 ug/dL (250-450) L Percent Iron Saturation 7 % (15-50) L Unsaturated Iron Binding 196 ug/dL (112-346) Lactate Dehydrogenase 114 U/L (81-234) Carcinoembryonic Antigen Pending Vitamin B12 Level 216 PG/ML (193-986) Folate 17.4 NG/ML (8.6-58.9) Current Medications Medications (Trade) Dose Ordered Sig/Adrián Route PRN Reason Start Time Stop Time Status Last Admin Dose Admin Acetaminophen (Tylenol) 650 mg Q6H PRN ORAL Mild Pain/Temp > 100.5 04/20/19 03:00 05/20/19 02:59 04/20/19 16:24 Acetaminophen/ Hydrocodone Bitart ([place] 5/325) 1 tab Q6H PRN ORAL Moderate Pain (Pain Scale 4-6) 3/4/20 03:00 04/27/19 02:59 04/21/19 16:18 Acetaminophen/ Hydrocodone Bitart ([place] 5/325) 1 tab Q6H PRN ORAL Severe Pain (Pain Scale 7-10) 04/20/19 03:00 04/27/19 02:59 Ceftriaxone Sodium 1 gm/ Dextrose 55 ml @ 110 mls/hr DAILY IVPB 04/21/19 09:00 04/26/19 09:29 04/21/19 09:20 Finasteride (Proscar) 5 mg DAILY ORAL 04/20/19 19:30 05/20/19 19:29 04/21/19 09:20 Ondansetron HCl (Zofran) 4 mg Q4H PRN IVP Nausea & Vomiting 04/20/19 03:00 05/20/19 02:59 Potassium Chloride/Sodium Chloride 1,000 ml @ 75 mls/hr [id number] IV 04/20/19 14:00 05/20/19 13:59 04/21/19 16:20 Tamsulosin HCl (Flomax) 0.4 mg BEDTIME ORAL 04/20/19 21:00 05/20/19 20:59 04/20/19 20:34 Temazepam (RestoriL) 7.5 mg HSPRN PRN ORAL Insomnia 04/20/19 12:34 04/27/19 12:33 04/20/19 23:07 Giovanny Bonds MD Apr 21, 2019 18:41
--- NOTE | 2019-04-21 19:13 | NUR ---
HAND-OFF: Report given to Radha BROCK, rounds made. CBI infusing as ordered.
--- NOTE | 2019-04-21 19:14 | NUR ---
NURSE NOTES: Received report from VINOD Richard. Pt is awake, lying semi-fregoso's; comfortably resting. No signs of acute distress noted. Pt denies any pain at this time. AOx4; able to make needs known. Checked IV site, line, and rate; patent and running. CBI patent, running, and draining well. No erythema, bleeding, or infiltration noted. Bed at lowest position. Brakes on. Siderails up x2. Call light within reach. Will continue to monitor.
[2019-04-21 20:00] VITALS: BP 128/79
[2019-04-21] MEDS: Tamsulosin 0.4mg cap ORAL SCH (20:51)
--- NOTE | 2019-04-21 21:00 | Consultation ---
DATE OF CONSULTATION: 04/21/2019 INFECTIOUS DISEASES CONSULTATION CONSULTING PHYSICIAN: Giovanny Bonds M.D. REFERRING PHYSICIAN: Geovany Welch M.D. REASON FOR CONSULTATION: Evaluation of the patient for urinary tract infection and antibiotic management. HISTORY OF PRESENT ILLNESS: The patient is a 69-year-old male with past medical history BPH, urinary retention who had a Perez catheter placed about 10 days ago. Few days later, the patient developed hematuria, got scared and the patient was admitted to [facility] four days ago. The patient was noted to have a urinary tract infection and fever. After stabilization, the patient was transferred to this medical center. Infectious Diseases consultation has been requested for further evaluation of the patient and antibiotic management. PAST MEDICAL HISTORY: BPH diagnosed six years ago. PAST SURGICAL HISTORY: None. ALLERGIES: No known drug allergies. FAMILY HISTORY: Noncontributory. MEDICATIONS: Rocephin. PHYSICAL EXAMINATION: VITAL SIGNS: Temperature 99.7, blood pressure 119/66, T-max 100, pulse 76, respiratory rate 21. HEENT: No pale conjunctivae. No icterus. NECK: No lymphadenopathy. CHEST: Clear. HEART: S1 and S2. ABDOMEN: Soft and nontender. No flank tenderness. GENITOURINARY: The patient has Perez catheter in place. NEUROLOGIC: Awake and alert. SKIN: No rash. EXTREMITIES: No edema. LABORATORY AND DIAGNOSTIC DATA: WBC of 12.7, hemoglobin 9, platelets 403. UA shows too numerous to count red blood cells and 5-10 white blood cells. BUN 6 and creatinine 0.8. ALT, AST, and alkaline phosphatase unremarkable. Urine culture is unremarkable. CT of abdomen showed mild left hydroureteronephrosis obstruction, mild thickening of the urinary bladder consistent with chronic cystitis. ASSESSMENT: The patient is a 69-year-old male with multiple medical problems who was admitted to this medical center for : 1. Hematuria. 2. Probable urinary tract infection. 3. History of fever prior to admission. PLAN: 1. We will continue the patient on IV Rocephin. 2. Monitor CBC. 3. Monitor BMP. 4. Monitor urine culture. 5. Follow Urology recommendations. Based on the patient's clinical course and labs, we will do further recommendations. Thank you, Dr. Welch, for allowing me to participate in the care of this patient. I will follow the patient with you during hospitalization. Giovanny Bonds M.D. DR: Corrina JOB#: [id number] CC:
[2019-04-22] VITALS: BP 130/75
[2019-04-22] MEDS: HYDROcodone/Acetamin 5/325 tab ORAL PRN ×2 (01:47→18:53)
[2019-04-22 04:00] VITALS: BP 132/80
[2019-04-22] MEDS: NS w/KCl 20mEq 1000ml 1,000 ML IV SCH ×2 (05:51→18:56)
--- NOTE | 2019-04-22 07:01 | NUR ---
NURSE NOTES: Report received from Radha RN, rounds made. Patient sitting in high fowlers position in bed, alert oriented x4 calm. Denies pain. No distress on RA. IVF (NS +20KCL at 75 ml/hr) to RAC. CBI infusing via [address] FC, output pink/light red clear, no clots noted, penile site asymptomatic. Bilateral SCDs on. Call light in reach, bed in lowest position, will continue to monitor.
--- NOTE | 2019-04-22 07:36 | NUR ---
HAND-OFF: Report given to VINOD Richard. Pt is awake and in stable condition. Plan of care endorsed.
[2019-04-22 08:00] VITALS: BP 133/79
[2019-04-22] MEDS: cefTRIAXone 1 GM in D5W 55 ML IVPB SCH (09:18)
--- NOTE | 2019-04-22 09:58 | Infectious Diseases Prog Note ---
Assessment/Plan Assessment/Plan ASSESSMENT: The patient is a 69-year-old male with multiple medical problems who was admitted to this medical center for : Hematuria. Probable urinary tract infection - UCx: GPC 10-20K - CT: Mild left hydroureteronephrosis without evidence of obstructive calculus History of fever prior to admission BPH PLAN: continue the patient on IV Rocephin # 2 Monitor CBC. Monitor BMP. Monitor urine culture. Follow Urology recommendations. Subjective Allergies: Coded Allergies: No Known Allergies (Unverified , 04/20/19) Subjective Afebrile no new complain Objective Vital Signs Last 24 Hour Vital Signs Date Time Temp Pulse Resp B/P (MAP) Pulse Ox O2 Delivery O2 Flow Rate FiO2 04/22/19 08:00 98.3 93 20 133/79 (97) 96 04/22/19 04:00 99.2 92 21 132/80 (97) 98 04/22/19 00:00 99.7 95 20 130/75 (93) 97 04/21/19 21:00 Room Air 04/21/19 20:00 99.7 95 20 128/79 (95) 96 04/21/19 16:00 99.3 92 20 128/83 (98) 97 04/21/19 12:00 98.3 70 21 119/66 (83) 97 Height (Feet): 5 Height (Inches): 4.00 Weight (Pounds): 111 HEENT: anicteric Respiratory/Chest: no accessory muscle use Cardiovascular: regularly irregular Abdomen: no organomegaly Microbiology Date/Time Source Procedure Growth Status 04/20/19 02:00 Urine,Clean Catch Urine Culture - Preliminary Gram Positive Cocci Resulted Current Medications Medications (Trade) Dose Ordered Sig/Adrián Route PRN Reason Start Time Stop Time Status Last Admin Dose Admin Acetaminophen (Tylenol) 650 mg Q6H PRN ORAL Mild Pain/Temp > 100.5 04/20/19 03:00 05/20/19 02:59 04/20/19 16:24 Acetaminophen/ Hydrocodone Bitart ([place] 5/325) 1 tab Q6H PRN ORAL Moderate Pain (Pain Scale 4-6) 04/20/19 03:00 04/27/19 02:59 04/22/19 01:47 Acetaminophen/ Hydrocodone Bitart ([place] 5/325) 1 tab Q6H PRN ORAL Severe Pain (Pain Scale 7-10) 04/20/19 03:00 04/27/19 02:59 Ceftriaxone Sodium 1 gm/ Dextrose 55 ml @ 110 mls/hr DAILY IVPB 04/21/19 09:00 04/26/19 09:29 04/22/19 09:18 Finasteride (Proscar) 5 mg DAILY ORAL 04/20/19 19:30 05/20/19 19:29 04/22/19 09:18 Ondansetron HCl (Zofran) 4 mg Q4H PRN IVP Nausea & Vomiting 04/20/19 03:00 05/20/19 02:59 Potassium Chloride/Sodium Chloride 1,000 ml @ 75 mls/hr [id number] IV 04/20/19 14:00 05/20/19 13:59 04/22/19 05:51 Tamsulosin HCl (Flomax) 0.4 mg BEDTIME ORAL 04/20/19 21:00 05/20/19 20:59 04/21/19 20:51 Temazepam (RestoriL) 7.5 mg HSPRN PRN ORAL Insomnia 04/20/19 12:34 04/27/19 12:33 04/21/19 22:19 Giovanny Bonds MD Apr 22, 2019 09:58
--- NOTE | 2019-04-22 11:28 | Pulmonology Progress Note ---
Assessment/Plan Problems: (1) UTI (urinary tract infection) (2) Hematuria (3) Iron deficiency anemia (4) Severe anemia (5) Urinary retention Assessment/Plan improving urine has GPC add Venofer for low iron check cultures id evaluation keep brown in Subjective ROS Limited/Unobtainable: No Constitutional: Reports: no symptoms HEENT: Repors: no symptoms Allergies: Coded Allergies: No Known Allergies (Unverified , 04/20/19) Objective Last 24 Hour Vital Signs Date Time Temp Pulse Resp B/P (MAP) Pulse Ox O2 Delivery O2 Flow Rate FiO2 04/22/19 08:00 98.3 93 20 133/79 (97) 96 04/22/19 04:00 99.2 92 21 132/80 (97) 98 04/22/19 00:00 99.7 95 20 130/75 (93) 97 04/21/19 21:00 Room Air 04/21/19 20:00 99.7 95 20 128/79 (95) 96 04/21/19 16:00 99.3 92 20 128/83 (98) 97 04/21/19 12:00 98.3 70 21 119/66 (83) 97 Intake and Output 04/21/19 04/22/19 19:00 07:00 Intake Total 4230 ml 875 ml Output Total 4800 ml 2150 ml Balance -570 ml -1275 ml Intake Oral 480 ml 800 ml IV Total 750 ml 75 ml Other 3000 ml Output Urine Total 4800 ml 2150 ml General Appearance: WD/WN HEENT: normocephalic, atraumatic Respiratory/Chest: chest wall non-tender, normal breath sounds Cardiovascular: normal peripheral pulses, regular rhythm Abdomen: normal bowel sounds, no organomegaly Genitourinary: normal external genitalia Extremities: no clubbing Microbiology Date/Time Source Procedure Growth Status 04/20/19 02:00 Urine,Clean Catch Urine Culture - Preliminary Gram Positive Cocci Resulted Current Medications Medications (Trade) Dose Ordered Sig/Adrián Route PRN Reason Start Time Stop Time Status Last Admin Dose Admin Acetaminophen (Tylenol) 650 mg Q6H PRN ORAL Mild Pain/Temp > 100.5 04/20/19 03:00 05/20/19 02:59 04/20/19 16:24 Acetaminophen/ Hydrocodone Bitart ([place] 5/325) 1 tab Q6H PRN ORAL Moderate Pain (Pain Scale 4-6) 04/20/19 03:00 04/27/19 02:59 04/22/19 01:47 Acetaminophen/ Hydrocodone Bitart ([place] 5/325) 1 tab Q6H PRN ORAL Severe Pain (Pain Scale 7-10) 04/20/19 03:00 04/27/19 02:59 Ceftriaxone Sodium 1 gm/ Dextrose 55 ml @ 110 mls/hr DAILY IVPB 04/21/19 09:00 04/26/19 09:29 04/22/19 09:18 Finasteride (Proscar) 5 mg DAILY ORAL 04/20/19 19:30 05/20/19 19:29 04/22/19 09:18 Ondansetron HCl (Zofran) 4 mg Q4H PRN IVP Nausea & Vomiting 04/20/19 03:00 05/20/19 02:59 Potassium Chloride/Sodium Chloride 1,000 ml @ 75 mls/hr [id number] IV 04/20/19 14:00 05/20/19 13:59 04/22/19 05:51 Tamsulosin HCl (Flomax) 0.4 mg BEDTIME ORAL 04/20/19 21:00 05/20/19 20:59 04/21/19 20:51 Temazepam (RestoriL) 7.5 mg HSPRN PRN ORAL Insomnia 04/20/19 12:34 04/27/19 12:33 04/21/19 22:19 Geovany Welch MD Apr 22, 2019 11:28
[2019-04-22 12:00] VITALS: BP 132/82
--- NOTE | 2019-04-22 12:37 | NUR ---
CASE MANAGEMENT: INITIAL REVIEW 04/22/19 SI: HEMATURIA . SEVERE ANEMIA . UTI . URINARY RETENTION WITH CATHETER 99.7 95 20 130/75 97% ON RA IS:IVF NS @75ML/HR IV KCL @75ML/HR IV ROCEPHIN BID PROSCAR PO QD RESTORIL PO QHS/PRN FLOMAX PO QD \: 3E MED SURG UNIT PLAN: CONT CBI - HEMATURIA CONT IV ABX WBC ELEVATED
--- NOTE | 2019-04-22 13:38 | General Progress Note ---
Assessment/Plan Status: doing well Assessment/Plan: ASSESSMENT: This is a 69-year-old male. 1. Gross hematuria. 2. Urinary retention. 3. Suprapubic pain. 4. Fever possible UTI wth 10-20 K GPC per outside culture. TREATMENT: 1. Urinary tract infection. ceftriaxone. A Urology consultation has been obtained with Dr. Pee Green. The patient may require cystoscopy to rule out bladder cancer. 3 way brown and CBI is on hold now. Await urology follow up and recommendations. 2. Suprapubic pain. 3. Benign prostatic hypertrophy. Continue terazosin as above. 4. Iron deficiency anemia. Clamp CBI for now encourage ambulation. monitor Labs and cultures. Added Venofer for RUSLAN. Subjective Date patient seen: Apr 22, 2019 Time patient seen: 13:00 ROS Limited/Unobtainable: No Allergies: Coded Allergies: No Known Allergies (Unverified , 04/20/19) All Systems: reviewed and negative except above Subjective Patient feels well. Good PO intake, awaiting urology follow up today. Objective Last 24 Hour Vital Signs Date Time Temp Pulse Resp B/P (MAP) Pulse Ox O2 Delivery O2 Flow Rate FiO2 04/22/19 12:00 98.4 93 18 132/82 (99) 95 04/22/19 09:00 Room Air 04/22/19 08:00 98.3 93 20 133/79 (97) 96 04/22/19 04:00 99.2 92 21 132/80 (97) 98 04/22/19 00:00 99.7 95 20 130/75 (93) 97 04/21/19 21:00 Room Air 04/21/19 20:00 99.7 95 20 128/79 (95) 96 04/21/19 16:00 99.3 92 20 128/83 (98) 97 Intake and Output 04/21/19 04/22/19 19:00 07:00 Intake Total 4230 ml 875 ml Output Total 4800 ml 2150 ml Balance -570 ml -1275 ml Intake Oral 480 ml 800 ml IV Total 750 ml 75 ml Other 3000 ml Output Urine Total 4800 ml 2150 ml Iron 15 Iron saturation 7 % Height (Feet): 5 Height (Inches): 4.00 Weight (Pounds): 111 General Appearance: WD/WN EENT: PERRL/EOMI Neck: non-tender Cardiovascular: normal peripheral pulses, normal rate Respiratory/Chest: lungs clear Abdomen: soft, no organomegaly, no mass Genitourinary/Rectal: other - Brown in place [address] 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
--- NOTE | 2019-04-22 14:11 | Urology Progress Note ---
Assessment/Plan Status: doing well Assessment/Plan: 1. Gross hematuria. 2. BPH. 3. Urinary retention. 4. Pyuria. 5. Proteinuria. 6. Mild hydronephrosis. maintain brown CBI stopped and restarted, titrate to keep clear cath hand irrigated, small clots evac cath is positional, nursing staff instructed cont with flomax, proscar monitor h/h abx ordered no anticoagulation f/u on urine cx cysto at some point electively re-image kidneys later d/w pt and his family Subjective Allergies: Coded Allergies: No Known Allergies (Unverified , 04/20/19) Subjective all noted, comfortable, CBI was stopped in the morning but was resumed again by primary service Objective Last 24 Hour Vital Signs Date Time Temp Pulse Resp B/P (MAP) Pulse Ox O2 Delivery O2 Flow Rate FiO2 04/22/19 12:00 98.4 93 18 132/82 (99) 95 04/22/19 09:00 Room Air 04/22/19 08:00 98.3 93 20 133/79 (97) 96 04/22/19 04:00 99.2 92 21 132/80 (97) 98 04/22/19 00:00 99.7 95 20 130/75 (93) 97 04/21/19 21:00 Room Air 04/21/19 20:00 99.7 95 20 128/79 (95) 96 04/21/19 16:00 99.3 92 20 128/83 (98) 97 Intake and Output 04/21/19 04/22/19 19:00 07:00 Intake Total 4230 ml 875 ml Output Total 4800 ml 2150 ml Balance -570 ml -1275 ml Intake Oral 480 ml 800 ml IV Total 750 ml 75 ml Other 3000 ml Output Urine Total 4800 ml 2150 ml Microbiology Date/Time Source Procedure Growth Status 04/20/19 02:00 Urine,Clean Catch Urine Culture - Preliminary Gram Positive Cocci Resulted Current Medications Medications (Trade) Dose Ordered Sig/Adrián Route PRN Reason Start Time Stop Time Status Last Admin Dose Admin Acetaminophen (Tylenol) 650 mg Q6H PRN ORAL Mild Pain/Temp > 100.5 04/20/19 03:00 05/20/19 02:59 04/20/19 16:24 Acetaminophen/ Hydrocodone Bitart ([place] 5/325) 1 tab Q6H PRN ORAL Moderate Pain (Pain Scale 4-6) 04/20/19 03:00 04/27/19 02:59 04/22/19 01:47 Acetaminophen/ Hydrocodone Bitart ([place] 5/325) 1 tab Q6H PRN ORAL Severe Pain (Pain Scale 7-10) 04/20/19 03:00 04/27/19 02:59 Ceftriaxone Sodium 1 gm/ Dextrose 55 ml @ 110 mls/hr DAILY IVPB 04/21/19 09:00 04/26/19 09:29 04/22/19 09:18 Finasteride (Proscar) 5 mg DAILY ORAL 04/20/19 19:30 05/20/19 19:29 04/22/19 09:18 Iron Sucrose 100 mg/Sodium Chloride 60 ml @ 240 mls/hr BEDTIME IV 04/22/19 21:00 04/26/19 21:14 Ondansetron HCl (Zofran) 4 mg Q4H PRN IVP Nausea & Vomiting 04/20/19 03:00 05/20/19 02:59 Potassium Chloride/Sodium Chloride 1,000 ml @ 75 mls/hr [id number] IV 04/20/19 14:00 05/20/19 13:59 04/22/19 05:51 Tamsulosin HCl (Flomax) 0.4 mg BEDTIME ORAL 04/20/19 21:00 05/20/19 20:59 04/21/19 20:51 Temazepam (RestoriL) 7.5 mg HSPRN PRN ORAL Insomnia 04/20/19 12:34 04/27/19 12:33 04/21/19 22:19 Height (Feet): 5 Height (Inches): 4.00 Weight (Pounds): 111 Objective exam stable urine clearing with moderate CBI CT A/P (04/20) noted Pee Green MD Apr 22, 2019 14:11
[2019-04-22 16:00] VITALS: BP_SYST 114; BP_SYST 145; BP_DIAS 74; BP_DIAS 81
--- NOTE | 2019-04-22 16:15 | NUR ---
NURSE NOTES: Patient had normal BFM BM, sent specimen down for stool for OB as ordered at this time. Dr. Green aware of occasional clots noted in drainage bag, ordered to continue to hand irrigate brown with NS as needed.
--- NOTE | 2019-04-22 19:16 | NUR ---
HAND-OFF: Report given to Alva BROCK. CBI running, endorsed orders to stop CBI at 0600 tomorrow morning 04/22, also to hand irrigate brown as needed.
[2019-04-22 20:00] VITALS: BP 125/77
[2019-04-22] MEDS: Tamsulosin 0.4mg cap ORAL SCH (20:24)
[2019-04-22] MEDS ORDERED: Iron Sucrose 100 MG in NS 55 ML IV SCH (21:00)
[2019-04-23] VITALS: BP 124/75
[2019-04-23 04:00] VITALS: BP 110/75
--- NOTE | 2019-04-23 04:44 | NUR ---
nurse's notes: no incidents of falls ,injuries or trauma reported as of this time; denies any pain, shortness of breath or any distress. patient with a brown cath with on-going CBI; noted at the start of this shift was output from CBI was reddish in color; flow rate for CBI increased; output now clear; blood clot noted x 1 only. will endorse to next RN CBI to be discontinued at 0600 as ordered.
--- NOTE | 2019-04-23 05:05 | NUR ---
nurse's notes: total NS via CBI = [id number]; total output = 18089; true UOP = 400
[2019-04-23 07:21] LABS: BASOPHILS % (AUTO) 0.9 % (0.0-2.0); EOSINOPHILS % (AUTO) 3.5 % (0.0-3.0); HEMATOCRIT 27.2 % (42.0-52.0); HEMOGLOBIN 9.5 G/DL (14.2-18.0); LYMPHOCYTES % (AUTO) 17.4 % (20.0-45.0); MEAN CORPUSCULAR VOLUME 83 FL (80-99); MONOCYTES % (AUTO) 12.3 % (1.0-10.0); NEUTROPHILS % (AUTO) 65.9 % (45.0-75.0); PLATELET COUNT 463 K/UL (150-450); RED BLOOD COUNT 3.28 M/UL (4.70-6.10); RED CELL DISTRIBUTION WIDTH 10.8 % (11.6-14.8); WHITE BLOOD COUNT 9.5 K/UL (4.8-10.8)
[2019-04-23 07:30] LABS: ANION GAP 10 mmol/L (5-15); BLOOD UREA NITROGEN 12 mg/dL (7-18); CALCIUM 8.4 MG/DL (8.5-10.1); CARBON DIOXIDE 25 MMOL/L (21-32); CHLORIDE 104 MMOL/L (98-107); CREATININE 0.8 MG/DL (0.55-1.30); POTASSIUM 4.1 MMOL/L (3.5-5.1); SODIUM 139 MMOL/L (136-145)
--- NOTE | 2019-04-23 07:57 | Pulmonology Progress Note ---
Assessment/Plan Assessment/Plan ASSESSMENT Probable UTI Gross hematuria Mild left hydroureteronephrosis Anemia Protein calorie malnutrition Hypomagnesemia BPH PLAN OF CARE MS floor IV fluids off CBI hand irrigation as needed urologist follow Flomax , Proscar continue monitor renal parameters , avoid nephrotoxic's, replace electrolytes as needed PSA - total and free WNL monitor H&H with goal to keep Hgb above 7 CEA WNL, stool OB pending abx as per ID, UCX + Staph aureus dietary eval IV iron, ferritin -92 dietary eval case discussed and evaluated by supervising physician Subjective Allergies: Coded Allergies: No Known Allergies (Unverified , 04/20/19) Subjective leuk resolved off CBI urine cleared Objective Last 24 Hour Vital Signs Date Time Temp Pulse Resp B/P (MAP) Pulse Ox O2 Delivery O2 Flow Rate FiO2 04/23/19 04:00 98.9 21 110/75 (87) 95 04/23/19 00:00 98.4 87 16 124/75 (91) 97 04/22/19 21:00 Room Air 04/22/19 20:00 98.9 89 20 125/77 (93) 97 04/22/19 16:00 98.3 91 20 145/81 (102) 98 04/22/19 14:50 Room Air 04/22/19 12:00 98.4 93 18 132/82 (99) 95 04/22/19 09:00 Room Air 04/22/19 08:00 98.3 93 20 133/79 (97) 96 Intake and Output 04/22/19 04/23/19 19:00 07:00 Intake Total 5187 ml 2312 ml Output Total 6700 ml 1500 ml Balance -1513 ml 812 ml Intake Oral 437 ml 237 ml IV Total 750 ml 75 ml Other 4000 ml 2000 ml Output Urine Total 6700 ml 1500 ml # Bowel Movements 2 1 General Appearance: no acute distress HEENT: normocephalic, atraumatic, anicteric, mucous membranes moist Respiratory/Chest: lungs clear, no respiratory distress, no accessory muscle use Cardiovascular: normal rate Abdomen: normal bowel sounds, soft, non tender, non distended Genitourinary: other - Perez catheter, thomas urine Extremities: no edema, pedal pulses normal Neurologic/Psychiatric: no motor/sensory deficits, alert, oriented x 3, responsive Musculoskeletal: normal muscle bulk Laboratory Tests 04/23/19 05:00: White Blood Count 9.5, Red Blood Count 3.28L, Hemoglobin 9.5L, Hematocrit 27.2L , Mean Corpuscular Volume 83, Mean Corpuscular Hemoglobin 28.9, Mean Corpuscular Hemoglobin Concent 34.8, Red Cell Distribution Width 10.8L, Platelet Count 463H, Mean Platelet Volume 5.5L, Neutrophils (%) (Auto) 65.9, Lymphocytes (%) (Auto) 17.4L, Monocytes (%) (Auto) 12.3H, Eosinophils (%) (Auto ) 3.5H, Basophils (%) (Auto) 0.9, Sodium Level 139, Potassium Level 4.1, Chloride Level 104, Carbon Dioxide Level 25, Anion Gap 10, Blood Urea Nitrogen 12, Creatinine 0.8, Estimat Glomerular Filtration Rate > 60, Glucose Level 91, Calcium Level 8.4L Current Medications Medications (Trade) Dose Ordered Sig/Adrián Route PRN Reason Start Time Stop Time Status Last Admin Dose Admin Acetaminophen (Tylenol) 650 mg Q6H PRN ORAL Mild Pain/Temp > 100.5 04/20/19 03:00 05/20/19 02:59 04/20/19 16:24 Acetaminophen/ Hydrocodone Bitart ([place] 5/325) 1 tab Q6H PRN ORAL Moderate Pain (Pain Scale 4-6) 04/20/19 03:00 04/27/19 02:59 04/22/19 18:53 Acetaminophen/ Hydrocodone Bitart ([place] 5/325) 1 tab Q6H PRN ORAL Severe Pain (Pain Scale 7-10) 04/20/19 03:00 04/27/19 02:59 Ceftriaxone Sodium 1 gm/ Dextrose 55 ml @ 110 mls/hr DAILY IVPB 04/21/19 09:00 04/26/19 09:29 04/22/19 09:18 Finasteride (Proscar) 5 mg DAILY ORAL 04/20/19 19:30 05/20/19 19:29 04/22/19 09:18 Iron Sucrose 100 mg/Sodium Chloride 60 ml @ 240 mls/hr BEDTIME IV 04/22/19 21:00 04/26/19 21:14 04/22/19 22:47 Ondansetron HCl (Zofran) 4 mg Q4H PRN IVP Nausea & Vomiting 04/20/19 03:00 05/20/19 02:59 Potassium Chloride/Sodium Chloride 1,000 ml @ 75 mls/hr [id number] IV 04/20/19 14:00 05/20/19 13:59 04/22/19 18:56 Tamsulosin HCl (Flomax) 0.4 mg BEDTIME ORAL 04/20/19 21:00 05/20/19 20:59 04/22/19 20:24 Temazepam (RestoriL) 7.5 mg HSPRN PRN ORAL Insomnia 04/20/19 12:34 04/27/19 12:33 04/21/19 22:19 Peg Romero HEEL SEAT LASTER Apr 23, 2019 07:57
[2019-04-23 08:00] VITALS: BP 129/88
--- NOTE | 2019-04-23 08:08 | NUR ---
HAND-OFF: Report given to VINOD Macias.
[2019-04-23] MEDS: NS w/KCl 20mEq 1000ml 1,000 ML IV SCH (08:16)
--- NOTE | 2019-04-23 08:20 | NUR ---
NURSE NOTES: AWAKE/ALERT. PAIN SCALE 3/10. ANTONIO IN PLACE DRAINING LIGHT JANESSA URINE . NO CLOTS.IN NO DISTRESS.
[2019-04-23] MEDS: HYDROcodone/Acetamin 5/325 tab ORAL PRN (08:23)
[2019-04-23] MEDS: cefTRIAXone 1 GM in D5W 55 ML IVPB SCH (09:06)
--- NOTE | 2019-04-23 09:40 | Infectious Diseases Prog Note ---
Assessment/Plan Assessment/Plan ASSESSMENT: The patient is a 69-year-old male with multiple medical problems who was admitted to this medical center for : Hematuria. 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 Monitor BMP. Follow Urology recommendations. Subjective Allergies: Coded Allergies: No Known Allergies (Unverified , 04/20/19) Subjective Afebrile comfortable Objective Vital Signs Last 24 Hour Vital Signs Date Time Temp Pulse Resp B/P (MAP) Pulse Ox O2 Delivery O2 Flow Rate FiO2 04/23/19 08:53 98.9 04/23/19 08:00 98.5 20 129/88 (102) 97 04/23/19 04:00 98.9 21 110/75 (87) 95 04/23/19 00:00 98.4 87 16 124/75 (91) 97 04/22/19 21:00 Room Air 04/22/19 20:00 98.9 89 20 125/77 (93) 97 04/22/19 16:00 98.3 91 20 145/81 (102) 98 04/22/19 14:50 Room Air 04/22/19 12:00 98.4 93 18 132/82 (99) 95 Height (Feet): 5 Height (Inches): 4.00 Weight (Pounds): 111 HEENT: anicteric Respiratory/Chest: no respiratory distress Cardiovascular: regular rhythm Abdomen: no organomegaly Laboratory Tests Test 04/23/19 05:00 04/23/19 05:55 White Blood Count 9.5 K/UL (4.8-10.8) Red Blood Count 3.28 M/UL (4.70-6.10) L Hemoglobin 9.5 G/DL (14.2-18.0) L Hematocrit 27.2 % (42.0-52.0) L Mean Corpuscular Volume 83 FL (80-99) Mean Corpuscular Hemoglobin 28.9 PG (27.0-31.0) Mean Corpuscular Hemoglobin Concent 34.8 G/DL (32.0-36.0) Red Cell Distribution Width 10.8 % (11.6-14.8) L Platelet Count 463 K/UL (150-450) H Mean Platelet Volume 5.5 FL (6.5-10.1) L Neutrophils (%) (Auto) 65.9 % (45.0-75.0) Lymphocytes (%) (Auto) 17.4 % (20.0-45.0) L Monocytes (%) (Auto) 12.3 % (1.0-10.0) H Eosinophils (%) (Auto) 3.5 % (0.0-3.0) H Basophils (%) (Auto) 0.9 % (0.0-2.0) Sodium Level 139 MMOL/L (136-145) Potassium Level 4.1 MMOL/L (3.5-5.1) Chloride Level 104 MMOL/L (98-107) Carbon Dioxide Level 25 MMOL/L (21-32) Anion Gap 10 mmol/L (5-15) Blood Urea Nitrogen 12 mg/dL (7-18) Creatinine 0.8 MG/DL (0.55-1.30) Estimat Glomerular Filtration Rate > 60 mL/min (>60) Glucose Level 91 MG/DL (74-106) Calcium Level 8.4 MG/DL (8.5-10.1) L Ferritin 92 NG/ML (8-388) Current Medications Medications (Trade) Dose Ordered Sig/Adrián Route PRN Reason Start Time Stop Time Status Last Admin Dose Admin Acetaminophen (Tylenol) 650 mg Q6H PRN ORAL Mild Pain/Temp > 100.5 04/20/19 03:00 05/20/19 02:59 04/20/19 16:24 Acetaminophen/ Hydrocodone Bitart ([place] 5/325) 1 tab Q6H PRN ORAL Moderate Pain (Pain Scale 4-6) 04/20/19 03:00 04/27/19 02:59 04/23/19 08:23 Acetaminophen/ Hydrocodone Bitart ([place] 5/325) 1 tab Q6H PRN ORAL Severe Pain (Pain Scale 7-10) 04/20/19 03:00 04/27/19 02:59 Ceftriaxone Sodium 1 gm/ Dextrose 55 ml @ 110 mls/hr DAILY IVPB 04/21/19 09:00 04/26/19 09:29 04/23/19 09:06 Finasteride (Proscar) 5 mg DAILY ORAL 04/20/19 19:30 05/20/19 19:29 04/23/19 09:06 Iron Sucrose 100 mg/Sodium Chloride 60 ml @ 240 mls/hr BEDTIME IV 04/22/19 21:00 04/26/19 21:14 04/22/19 22:47 Ondansetron HCl (Zofran) 4 mg Q4H PRN IVP Nausea & Vomiting 04/20/19 03:00 05/20/19 02:59 Potassium Chloride/Sodium Chloride 1,000 ml @ 75 mls/hr [id number] IV 04/20/19 14:00 05/20/19 13:59 04/23/19 08:16 Tamsulosin HCl (Flomax) 0.4 mg BEDTIME ORAL 04/20/19 21:00 05/20/19 20:59 04/22/19 20:24 Temazepam (RestoriL) 7.5 mg HSPRN PRN ORAL Insomnia 04/20/19 12:34 04/27/19 12:33 04/21/19 22:19 Giovanny Bonds MD Apr 23, 2019 09:40
--- NOTE | 2019-04-23 11:22 | Urology Progress Note ---
Assessment/Plan Status: doing well Assessment/Plan: 1. Gross hematuria. 2. BPH. 3. Urinary retention. 4. Pyuria. 5. Proteinuria. 6. Mild hydronephrosis. maintain brown, do not remove CBI stopped cath hand irrigated, clearing, no clots cath is positional, nursing staff instructed hand irrigate PRN cont with flomax, proscar monitor h/h, stable abx ordered, per ID no anticoagulation cysto at some point electively re-image kidneys later d/w pt and his family Subjective Allergies: Coded Allergies: No Known Allergies (Unverified , 04/20/19) Subjective all noted, comfortable apparently CBI was never stopped yest as ordered CBI was stopped this morning Objective Last 24 Hour Vital Signs Date Time Temp Pulse Resp B/P (MAP) Pulse Ox O2 Delivery O2 Flow Rate FiO2 04/23/19 09:00 Room Air 04/23/19 08:53 98.9 04/23/19 08:00 98.5 20 129/88 (102) 97 04/23/19 04:00 98.9 21 110/75 (87) 95 04/23/19 00:00 98.4 87 16 124/75 (91) 97 04/22/19 21:00 Room Air 04/22/19 20:00 98.9 89 20 125/77 (93) 97 04/22/19 16:00 98.3 91 20 145/81 (102) 98 04/22/19 14:50 Room Air 04/22/19 12:00 98.4 93 18 132/82 (99) 95 Intake and Output 04/22/19 04/23/19 19:00 07:00 Intake Total 5187 ml 2312 ml Output Total 6700 ml 1500 ml Balance -1513 ml 812 ml Intake Oral 437 ml 237 ml IV Total 750 ml 75 ml Other 4000 ml 2000 ml Output Urine Total 6700 ml 1500 ml # Bowel Movements 2 1 Microbiology Date/Time Source Procedure Growth Status 04/20/19 02:00 Urine,Clean Catch Urine Culture - Final Staphylococcus Aureus Complete Current Medications Medications (Trade) Dose Ordered Sig/Adrián Route PRN Reason Start Time Stop Time Status Last Admin Dose Admin Acetaminophen (Tylenol) 650 mg Q6H PRN ORAL Mild Pain/Temp > 100.5 04/20/19 03:00 05/20/19 02:59 04/20/19 16:24 Acetaminophen/ Hydrocodone Bitart ([place] 5/325) 1 tab Q6H PRN ORAL Moderate Pain (Pain Scale 4-6) 04/20/19 03:00 04/27/19 02:59 04/23/19 08:23 Acetaminophen/ Hydrocodone Bitart ([place] 5/325) 1 tab Q6H PRN ORAL Severe Pain (Pain Scale 7-10) 04/20/19 03:00 04/27/19 02:59 Cephalexin (Keflex) 500 mg FOUR TIMES A DAY ORAL 04/23/19 13:00 04/30/19 12:59 Finasteride (Proscar) 5 mg DAILY ORAL 04/20/19 19:30 05/20/19 19:29 04/23/19 09:06 Iron Sucrose 100 mg/Sodium Chloride 60 ml @ 240 mls/hr BEDTIME IV 04/22/19 21:00 04/26/19 21:14 04/22/19 22:47 Ondansetron HCl (Zofran) 4 mg Q4H PRN IVP Nausea & Vomiting 04/20/19 03:00 05/20/19 02:59 Potassium Chloride/Sodium Chloride 1,000 ml @ 75 mls/hr [id number] IV 04/20/19 14:00 05/20/19 13:59 04/23/19 08:16 Tamsulosin HCl (Flomax) 0.4 mg BEDTIME ORAL 04/20/19 21:00 05/20/19 20:59 04/22/19 20:24 Temazepam (RestoriL) 7.5 mg HSPRN PRN ORAL Insomnia 04/20/19 12:34 04/27/19 12:33 04/21/19 22:19 Laboratory Tests 04/23/19 05:00: White Blood Count 9.5, Red Blood Count 3.28L, Hemoglobin 9.5L, Hematocrit 27.2L , Mean Corpuscular Volume 83, Mean Corpuscular Hemoglobin 28.9, Mean Corpuscular Hemoglobin Concent 34.8, Red Cell Distribution Width 10.8L, Platelet Count 463H, Mean Platelet Volume 5.5L, Neutrophils (%) (Auto) 65.9, Lymphocytes (%) (Auto) 17.4L, Monocytes (%) (Auto) 12.3H, Eosinophils (%) (Auto ) 3.5H, Basophils (%) (Auto) 0.9, Sodium Level 139, Potassium Level 4.1, Chloride Level 104, Carbon Dioxide Level 25, Anion Gap 10, Blood Urea Nitrogen 12, Creatinine 0.8, Estimat Glomerular Filtration Rate > 60, Glucose Level 91, Calcium Level 8.4L 04/23/19 05:55: Ferritin 92 Height (Feet): 5 Height (Inches): 4.00 Weight (Pounds): 111 Objective exam stable urine clearing off CBI CT A/P (04/20) noted Pee Green MD Apr 23, 2019 11:22
[2019-04-23 12:00] VITALS: BP 128/77
[2019-04-23] MEDS ORDERED: Cephalexin 500mg cap ORAL SCH (13:00)
[2019-04-23] MEDS ORDERED: CEPHALEXIN500 MG ORAL ×2 (13:30→13:34)
--- NOTE | 2019-04-23 13:38 | Discharge Instructions ---
Discharge Instructions Discharge Instructions Resume Normal Activity?: Yes Activity: resume normal activities Follow Up Orders Follow up with Dr. Green for urology in 1- 2 weeks Return to Work/School on: Apr 27, 2019 Special Instructions Use leg bag and continue to use indwelling Perez For Surgical Patients Contact your physician for: bleeding, pain For Congestive Heart Failure Reminder Report to your physician any weight gain of 5 pounds or more in one week. Derek Stiles MD Apr 23, 2019 13:38
--- NOTE | 2019-04-23 13:47 | Discharge Summary ---
Discharge Summary Hospital Course Date of Admission Apr 20, 2019 at 01:32 Date of Discharge 04/23/19 Admitting Diagnosis Hematuria BPH HPI Casimiro Arevalo is a 69 year old male who was admitted on Apr 20, 2019 at 01:32 for Urinary Tract Infection/Gross Hematuria Hospital Course ASSESSMENT: This is a 69-year-old male. 1. Gross hematuria. 2. Urinary retention. 3. Suprapubic pain. 4. Fever possible UTI wth 10-20 K GPC per outside culture. TREATMENT: 1. Urinary tract infection. ceftriaxone. A Urology consultation has been obtained with Dr. Pee Green who saw the patient in consultation and CBI was stopped without evidence of more hematuria. The patient will be continued of Keflex for 7 days and therapy per urology recommendation 2. Suprapubic pain. Improved. 3. Benign prostatic hypertrophy. Continue tamsulosin and Finasteride. Rx called. NEEDS outpatient cystoscopy and the patient has Dr. Green office number to make an appointment. 4. Iron deficiency anemia. Continue iron supplementation. Rx called. Discharge Medications Discontinued Medications: Cephalexin* (Keflex*) 500 Mg Capsule 500 MG ORAL QID for ANTIBIOTIC, #2 CAP 0 Refills Discharge Discharge Vital Signs Last Vital Signs Date Time Temp Pulse Resp B/P (MAP) Pulse Ox O2 Delivery O2 Flow Rate FiO2 04/23/19 12:00 98.0 93 18 128/77 (94) 96 04/23/19 09:00 Room Air Discharge Disposition Patient was discharged to Discharge Diagnoses: (1) BPH (benign prostatic hyperplasia) (2) UTI (urinary tract infection) (3) Hematuria (4) Iron deficiency anemia Discharge Instructions Discharge Instructions Activity: resume normal activities May Return to Work/School On: Apr 27, 2019 For Surgical Patients Contact your physician for: bleeding, pain Derek Stiles MD Apr 23, 2019 13:47
[2019-04-23] MEDS ORDERED: NS Irrig 2000ml IRRIG ONE ×2 (13:55→13:56)
[2019-04-23] MEDS ORDERED: Tubing IV Secondary IV ONE (13:55)
--- NOTE | 2019-04-23 14:44 | NUR ---
NURSE NOTES: DISCHARGED HOME [employer] BY DAUGHTER IN STABLE CONDITION. DC INSTRUCTIONS AND RX GIVEN. PT INSTRUCTED HOW TO EMPTY LEG BAG.
== END 2019-04-23 14:45 | disposition home or self-care (01) | DRG 690 ==
LOC: 3E 04-20 01:32
DX: N39.0 Urinary tract infection, site not specified (principal); N40.1 Benign prostatic hyperplasia with lower urinary tract symptoms; R33.8 Other retention of urine; R31.0 Gross hematuria; D50.9 Iron deficiency anemia, unspecified; N13.30 Unspecified hydronephrosis
CPT/HCPCS: 36415; 74178; 80048; 80053; 81003; 82270; 82378; 82607; 82728; 82746; 83540; 83550; 83615; 83735; 84100; 84153; 84154; 85007; 85025; 85044; 85060; 85610; 85651; 85730; 86850; 86900; 86901; 86920; 87086; 87181; J7030; J8499